=== PATIENT | female | born 1945 | race Caucasian/White ===

== ENCOUNTER 2024-06-23 05:49 | Inpatient (IN) ==
--- NOTE | 2024-05-30 13:43 | PAT Medication Instructions ---
Medication Instructions Date of Service May 30, 2024 Home Medications albuterol sulfate 90 mcg/actuation aerosol inhaler 1 inh inhalation QID PRN sob baclofen 10 mg tablet 10 mg PO TID PRN Pain duloxetine 60 mg capsule,delayed release (Cymbalta) 120 mg PO QAM ergocalciferol (vitamin D2) 1,250 mcg (50,000 unit) capsule (Vitamin D2) 1,250 mcg PO WK ferrous sulfate 325 mg (65 mg iron) tablet 325 mg PO QAM folic acid 1 mg tablet 1 mg PO QAM gabapentin 100 mg capsule 200 mg PO BID gabapentin 900 mg tablet,extended release 24 hr 900 mg PO HS lisinopril 20 mg tablet 20 mg PO QAM methotrexate sodium 2.5 mg tablet 2.5 mg PO UD DO NOT take the morning of surgery ergocalciferol (vitamin D2) 1,250 mcg (50,000 unit) capsule (Vitamin D2) 1,250 mcg PO WK ferrous sulfate 325 mg (65 mg iron) tablet 325 mg PO QAM folic acid 1 mg tablet 1 mg PO QAM lisinopril 20 mg tablet 20 mg PO QAM Take morning of surgery With a small sip of water, OTHERWISE NOTHING TO EAT OR DRINK AFTER MIDNIGHT: albuterol sulfate 90 mcg/actuation aerosol inhaler 1 inh inhalation QID PRN sob (use if needed; please bring rescue inhaler with you to hospital day of surgery if possible) baclofen 10 mg tablet 10 mg PO TID PRN Pain (if needed) duloxetine 60 mg capsule,delayed release (Cymbalta) 120 mg PO QAM gabapentin 100 mg capsule 200 mg PO BID Take evening before surgery albuterol sulfate 90 mcg/actuation aerosol inhaler 1 inh inhalation QID PRN sob (if needed) baclofen 10 mg tablet 10 mg PO TID PRN Pain (if needed) gabapentin 100 mg capsule 200 mg PO BID gabapentin 900 mg tablet,extended release 24 hr 900 mg PO HS STOP 7 days prior to surgery methotrexate sodium 2.5 mg tablet 2.5 mg PO UD Other Notes If you have any questions please call us at [phone] or [phone] or [phone] or [phone]
--- NOTE | 2024-06-02 09:04 | Anesthesiology Consultation ---
Date of Service June 02, 2024 Assessment & Plan (1) Encounter for pre-operative examination: - awaiting surgeon ordered medical clearance, Dr. Michaels 06/09/24. - spinal cord stimulator. Patient aware to bring remote to hospital DOS. Chart Review Chart Review: Pending: Refer to Additional Notes / Consult section and Patient seen in Pre Admission Testing Teaching & Discussion Pre-Anesthesia Teaching/Discussion Notes: Instructed NPO after midnight before surgery, except medications with 15 cc of water. Medication instructions provided according to the PAT guidelines. History Surgery Operation Date: 06/23/24 11:05 Proposed Procedures p L3-L4 Decompression and Fusion, L4-L5 Hardware Removal - Ace Owens, Height/Weight Height: 5 ft 3 in Weight: 88.7 kg Allergies Allergy/AdvReac Type Severity Reaction Status Date / Time erythromycin base Allergy Mild Rash Verified 05/30/24 09:57 latex Allergy Mild Rash Verified 05/30/24 09:57 Penicillins Allergy Mild Rash Verified 05/30/24 09:57 tetracycline Allergy Mild Rash Verified 05/30/24 09:57 codeine AdvReac Mild "makes me Verified 05/30/24 09:57 hyper" Medications Home Medications Medication Instructions Recorded Confirmed Last Taken albuterol sulfate 90 mcg/actuation 1 inh inhalation QID PRN sob 05/30/24 05/30/24 Unknown aerosol inhaler baclofen 10 mg tablet 10 mg PO TID PRN Pain 05/30/24 05/30/24 Unknown duloxetine 60 mg capsule,delayed 120 mg PO QAM 05/30/24 05/30/24 Unknown release (Cymbalta) ergocalciferol (vitamin D2) 1,250 1,250 mcg PO WK 05/30/24 05/30/24 Unknown mcg (50,000 unit) capsule (Vitamin D2) ferrous sulfate 325 mg (65 mg 325 mg PO QAM 05/30/24 05/30/24 Unknown iron) tablet folic acid 1 mg tablet 1 mg PO QAM 05/30/24 05/30/24 Unknown gabapentin 100 mg capsule 200 mg PO BID 05/30/24 05/30/24 Unknown gabapentin 900 mg tablet,extended 900 mg PO HS 05/30/24 05/30/24 Unknown release 24 hr lisinopril 20 mg tablet 20 mg PO QAM 05/30/24 05/30/24 Unknown methotrexate sodium 2.5 mg tablet 2.5 mg PO UD 05/30/24 05/30/24 Unknown Past Medical History Medical History (Updated 06/02/24 @ 09:14 by Ashly Newsome PA-C) Anxiety and depression Asthma controlled per pt; inhaler prn-last used several weeks ago Degenerative disc disease History of blood transfusion marcelino-operatively with previous back surgery Hypertension controlled, stable per pt Low iron Macular degeneration Rheumatoid arthritis Spinal stenosis Patient denies h/o stroke, seizures, heart attack, heart failure, DM, or blood clots/DVTs. Exercise / Class Metabolic Activity III < 4 Walking/Shop/Light housework (denies chest discomfort or shortness of breath with usual activities, infrequently walks up one flight of stairs and has shortness of breath-notes correlation to reduced physical activity due to back- denies change or worsening) Past Family History Family History Other No family history of adverse response to anesthesia Past Surgical History Surgical History (Updated 06/02/24 @ 09:55 by Ashly Newsome PA-C) H/O Achilles tendon repair left H/O non-cataract eye surgery "for macular degeneration" H/O total hysterectomy History of anesthesia reaction trouble waking up and stopped breathing with gallbladder surgery>[facility] 15-16 years ago-patient states cause was not determined-notes has had multiple surgeries including with intubation and has not had any issues History of cataract surgery right/left History of cholecystectomy History of colonoscopy History of lumbar surgery total of 4 (last fusion 2005) ? fusion levels *Dr. Owens has done all surgeries History of tonsillectomy and adenoidectomy History of tooth extraction History of total knee replacement right/left S/P insertion of spinal cord stimulator (2022) will bring remote to PAT and surgery Past Anesthesia History See above regarding personal history. Adopted-no known family history. History of PONV No Hx of PONV and Hx of Motion Sickness Social History Smoking Status: Never smoker Do You Dip or Chew Tobacco: No Hx Alcohol Use: No Hx Substance Use: No Review of Systems Occasional snoring, denies witnessed apneas. Patient denies chest pain, reflux, fever, chills, cough, wheezing, or palpitations. Physical Exam Vital Signs Vitals BP 109/73 (Patient states this is within her typical BP range) P 85 TEMP 97.6 SP02 98% on RA RESP 18 Physical Patient resting comfortably in chair in no acute distress, alert and oriented, responding appropriately throughout visit Full cervical extension range of motion without pain TMD 3.5 finger breadths Mallampati Score 2 Dentition: edentulous, full upper and lower dentures Lungs: normal respiratory effort. Good air movement, clear throughout to auscultation, no adventitious breath sounds Cardiac: regular rate and rhythm, no murmurs noted Carotid arteries: negative bruit bilat Lab Results Anesthesia Preop Results Results Anesthesia Widget: WBC 5.71 K/ul (4.8-10.8) 06/02/24 Hgb 13.2 g/dl (12.0-16.0) 06/02/24 Hct 39.4 % (37.0-47.0) 06/02/24 Plt 297 K/uL (130-400) 06/02/24 Na 140 mmol/L (136-145) 06/02/24 K 3.5 mmol/L (3.5-5.1) 06/02/24 Cl 107 mmol/L (98-107) 06/02/24 CO2 26 mmol/L (21-32) 06/02/24 BUN 20 mg/dl (6-23) 06/02/24 Creat 0.79 mg/dl (0.6-1.2) 06/02/24 Glucose Level 98 mg/dl (70-99(Fasting)) 06/02/24 PT 10.2 Seconds (9.0-12.0) 06/02/24 PTT 27 Seconds (21-31) 06/02/24 INR 0.9 (0.9-1.1) 06/02/24 Urine Color Yellow 06/02/24 Urine Appearance Clear (Clear) 06/02/24 Urine pH 5.0 (4.5-7.5) 06/02/24 Urine Specific [place] 1.027 (1.000-1.030) 06/02/24 Urine Protein Negative (Negative) 06/02/24 Urine Glucose (UA) Negative (Negative) 06/02/24 Urine Ketones Trace (Negative) H 06/02/24 Urine Blood Negative (Negative) 06/02/24 Urine Nitrite Negative (Negative) 06/02/24 Urine Bilirubin Negative (Negative) 06/02/24 Urine Urobilinogen Negative (Negative) 06/02/24 Urine Leukocyte Esterase 1+ (Negative) H 06/02/24 Urine WBC (Auto) 0-5 /hpf (0-5) 06/02/24 Urine RBC (Auto) 0-2 /hpf (0-2) 06/02/24 Urine Hyaline Casts (Auto) 0-2 /lpf (0-2) 06/02/24 Urine Epithelial Cells (Auto) 3-5 /hpf (0-2) H 06/02/24 Urine Bacteria (Auto) None Seen (None Seen) 06/02/24 Blood Type O Positive 06/02/24 Antibody Screen NEGATIVE 06/02/24 Testing Electrocardiogram Date: 06/02/24 NSR, rate 87 bpm Chest X-Ray Date: 06/02/24 No evidence of acute cardiopulmonary disease, communicable disease or tuberculosis. Cervical Spine Date: 06/02/24 Moderate degenerative change without acute osseous abnormality of the cervical spine. No dynamic instability.
[2024-06-23] MEDS: VANCOMYCIN HCL 1,250 MG in SODIUM CHLORIDE 0.9% 250 ML IV SCH (06:22)
[2024-06-23] MEDS: LR 15ML/HR IV SCH (06:22)
[2024-06-23] MEDS: CeleBREX 200 MG CAP PO SCH (06:32)
[2024-06-23] MEDS: GABAPENTIN 300 MG CAP PO SCH ×2 (06:32→21:23)
[2024-06-23] MEDS: ACETAMINOPHEN 500 MG TAB PO SCH (06:32)
[2024-06-23] MEDS: LR 60ML/HR IV SCH (07:11)
--- NOTE | 2024-06-23 07:36 | History & Physical Bridge Note ---
Date of Service June 23, 2024 History & Physical Bridge Note I have examined the patient, reviewed the History & Physical and in the interval since the performance of the History & Physical I have noted the following changes of clinical significance: no changes noted
--- NOTE | 2024-06-23 07:39 | History & Physical Report ---
Date of Service June 23, 2024 Assessment & Plan (1) Spinal stenosis of lumbar region with radiculopathy: Plan: L3-L4 decompression and fusion, L4-L5 hardware removal History of Present Illness Chief Complaint: Back and bilateral leg pain Primary Care Provider: Archie Michaels This is a 70-year-old female who presents with back and pelvic pain and failing course of nonoperative care she is here for surgical invention. Allergies Allergy/AdvReac Type Severity Reaction Status Date / Time erythromycin base Allergy Mild Rash Verified 06/23/24 06:55 latex Allergy Mild Rash Verified 06/23/24 06:55 Penicillins Allergy Mild Rash Verified 06/23/24 06:55 tetracycline Allergy Mild Rash Verified 06/23/24 06:55 codeine AdvReac Mild "makes me Verified 06/23/24 06:55 hyper" Home Medications Medication Instructions Recorded Confirmed Type albuterol sulfate 90 mcg/actuation 1 inh inhalation QID PRN sob 05/30/24 06/23/24 History aerosol inhaler baclofen 10 mg tablet 10 mg PO TID PRN Pain 05/30/24 06/23/24 History duloxetine 60 mg capsule,delayed 120 mg PO QAM 05/30/24 06/23/24 History release (Cymbalta) ergocalciferol (vitamin D2) 1,250 1,250 mcg PO WK 05/30/24 06/23/24 History mcg (50,000 unit) capsule (Vitamin D2) ferrous sulfate 325 mg (65 mg 325 mg PO QAM 05/30/24 06/23/24 History iron) tablet folic acid 1 mg tablet 1 mg PO QAM 05/30/24 06/23/24 History gabapentin 100 mg capsule 200 mg PO BID 05/30/24 06/23/24 History gabapentin 900 mg tablet,extended 900 mg PO HS 05/30/24 06/23/24 History release 24 hr lisinopril 20 mg tablet 20 mg PO QAM 05/30/24 06/23/24 History methotrexate sodium 2.5 mg tablet 2.5 mg PO UD 05/30/24 06/23/24 History Past Med/Surg History Problem List (Updated 06/23/24 @ 07:38 by Ace Owens, DO) Spinal stenosis of lumbar region with radiculopathy Encounter for pre-operative examination Medical History (Updated 06/23/24 @ 07:38 by Ace Owens, DO) History of blood transfusion marcelino-operatively with previous back surgery Degenerative disc disease Spinal stenosis Rheumatoid arthritis Low iron Macular degeneration Anxiety and depression Hypertension controlled, stable per pt Asthma controlled per pt; inhaler prn-last used several weeks ago Surgical History H/O Achilles tendon repair left History of anesthesia reaction trouble waking up and stopped breathing with gallbladder surgery>[facility] 15-16 years ago-patient states cause was not determined-notes has had multiple surgeries including with intubation and has not had any issues History of total knee replacement right/left S/P insertion of spinal cord stimulator (2022) will bring remote to [facility] and surgery History of lumbar surgery total of 4 (last fusion 2005) ? fusion levels *Dr. Owens has done all surgeries History of colonoscopy H/O total hysterectomy History of cholecystectomy H/O non-cataract eye surgery "for macular degeneration" History of tooth extraction History of tonsillectomy and adenoidectomy History of cataract surgery right/left Family History Other No family history of adverse response to anesthesia Social History Smoking Status: Unknown if ever smoked Second Hand Exposure: Yes (in the past); Do You Dip or Chew Tobacco: No; Hx Alcohol Use: No Hx Substance Use: No Preferred Language: [place] Communication Ability: Effective Financial Operations Consultant Required: No Beliefs That Will Affect Care: None Current Living Situation: Spouse Current Living Situation Comment: currently living at daughter's d/t 's heart surgery (for recovery) Feels Safe at Home: Yes Safety Concerns: Feels Safe At This Time Assistive Devices: Denture - Upper, Denture - Lower and Glasses Physical Exam Physical Exam: Patient is alert and oriented Heart regular rhythm lungs clear Results & Data Results & Data Vital Signs (Past 12 Hours) Vital Signs Temp Pulse Resp BP Pulse Ox O2 Del Method 06/23/24 06:35 36.8 C 85 18 102/59 L 96 Room Air
[2024-06-23] MEDS ORDERED: ROCURONIUM BROMIDE 10 MG/ML 5 ML VIAL IV ONE (08:28)
[2024-06-23] MEDS ORDERED: DEXAMETHASONE SOD INJ 4 MG/ML VIAL ONE (08:28)
[2024-06-23] MEDS ORDERED: PROPOFOL IV EMULSION 10 MG/ML 20 ML VIAL IV ONE (08:28)
[2024-06-23] MEDS ORDERED: ONDANSETRON INJ 2 MG/ML 2 ML VIAL ONE (08:28)
[2024-06-23] MEDS ORDERED: fentaNYL citrate PF 100 MCG/2 ML VIAL ONE (08:29)
[2024-06-23] MEDS ORDERED: MIDAZOLAM HCL 1 MG/ML 2ML VIAL ONE (08:29)
[2024-06-23] MEDS ORDERED: SUGAMMADEX SODIUM 200 MG/2 ML VIAL IV ONE ×2 (08:30→11:36)
[2024-06-23] MEDS ORDERED: ePHEDrine sulfate 50 MG/ML AMP IV PRN (09:26)
[2024-06-23] MEDS ORDERED: ATROPINE SULFATE 0.1 MG/ML 10ML SYR IV PRN (09:26)
[2024-06-23] MEDS ORDERED: DROPERIDOL 5 MG/2 ML VIAL IV PRN (09:26)
[2024-06-23] MEDS: BUPIVACAINE/EPINEPHRINE 0.25% 1:200,000 30 ML VIAL ONE (10:16)
[2024-06-23] MEDS: FLOSEAL HEMOSTATIC MATRIX 10ML TOP ONE (11:31)
[2024-06-23] MEDS: ceFAZolin 330 MG/ML 1 GM VIAL ONE (11:33)
--- NOTE | 2024-06-23 11:41 | Fluoroscopy Report ---
FL lumbar spine 2-3V CLINICAL HISTORY: L3-L4 DECOMPRESSION AND FUSION L4-L5 HW REMOVAL COMPARISON STUDY: None FLUOROSCOPY TIME: 18 seconds FLUOROSCOPY IMAGES: 3 EXPOSURE DOSE: 13 mGy FINDINGS: Fluoroscopy was provided for lumbar metallic fusion. IMPRESSION: Intraoperative fluoroscopy. ACT 112: Negative or not required by law. Electronically signed by: Jax Dean M.D. 06/23/2024 11:40 AM
--- NOTE | 2024-06-23 11:43 | Operative Report ---
Post Operative Report Pre & Post Diagnosis Operation Date: 06/23/24 07:45 Pre-Op Diagnosis: #1 multilevel lumbar spondylosis with radiculopathy. #2 lumbar spinal stenosis. #3 failed spinal cord stimulator. Post-Op Diagnosis: Same I identified the patient and participated in the time-out.: Yes Procedure Operation Date: 06/23/24 07:45 Actual Procedures #1 removal of posterior instrumentation L4-5. #2 exploration of fusion L4-L5. #3 removal of spinal cord stimulator leads and battery. #4 lumbar decompression bilateral medial facetectomies and foraminotomies L1-L2, L2-L3 and L3-L4. #5 posterior spinal fusion L2-L4. #6 placement posterior instrumentation L2-L5. #7 interbody fusion L2-L3 L3-L4. #8 patient with Spira 11 x 26 mm at L2-L3 and 9 x 26 mm of L3-L4. #9 placement locally harvested morselized autograft posterior gutters. #10 placement fuse collagen sponge, with Koros in the posterior lateral gutters and os design bone graft interbody space. #11 application of versa wrap of the exposed dura. Surgeon Ace Owens, DO Structural Welder Xiomy Reina Estimated Blood Loss 450 Findings See Below The patient is 5 foot 3 weighing over 90 kg with a BMI in excess of 35. Patient unable to contribute to significant technical difficulty with positioning exposure and the procedure itself and at least 50% increased operative time. Specimens None Indications This is a 78-year-old female well-known to me the presents with the above- mentioned diagnosis. Failing course of nonoperative care she is here for surgical intervention. Preoperatively did discuss the malfunction of her spinal cord stimulator and its proximity to our surgical dissection subsequently elected to remove the device. Description of Procedure Patient was met with identified informed consent obtained. Patient was then taken to the operative suite underwent ablation placed in a prone position on the Jas table atop the Antonio frame. All bony prominences well-padded eyes inspected to ensure no external pressure placed upon them. This point the lumbar spine was prepped and draped in normal sterile fashion. Sharp dissection with the assistance of Bovie cautery performed down to and exposing the lamina transverse processes of L2-L3 and there is instrumentation L4-L5 bilaterally. The leads for the spinal cord stimulator were directly in the path of our dissection or compromised during the exposure. Subsequently leads were removed without difficulty. This included removal of the battery. The hardware at L4- 5 was then removed bilaterally. The fusion mass was explored noted to be mature and intact. Informed complete laminectomy of L3 with bilateral medial facetectomies and foraminotomies addressing severe spinal stenosis. Performed a laminectomy of L 2 addressing severe subarticular stenosis compromising the stability of this region. I performed a partial laminectomy of L1 with bilateral medial facetectomies addressing severe subarticular stenosis. Pedicle screws were subsequently placed at L2 L3-L4-L5 bilaterally with assistance of fluoroscopy process luther contoured and placed. by way of transforaminal approach and right a complete discectomy of L3-L4 was performed endplates guarded to subcortical mean bone and a 9 x 26 mm Spira cage filled with os designed tapped in position. Then proceeded to L2-L3 and again by way of transforaminal approach on the right complete discectomy performed endplates guarded to subcortical bleeding bone and 11 x 26 mm Spira cage filled with os designed tapped in position. The rods were then locked in final position bilaterally. The transverse processes of L2-L3 and L4 burred to subcortical bleeding bone. Infuse collagen sponge, with Koros and local autograft placed in posterior gutters. 15 round AMI inserted. Versa wrap placed over the exposed dura. The incision was then closed with 1 Vicryl fascia 2-0 Vicryl subcutaneously and 4 Monocryl for final skin closure. Steri-Strips sterile dressing placed. Patient waken taken to PACU stable condition. Please note spinal cord monitoring was utilized at the procedure no changes noted. Xiomy Reina was present at the entire surgery while the patient positioning complex portion of the surgery and final skin closure. I attest to the content of the Intraoperative Record and any orders documented therein. Any exceptions are noted below.
[2024-06-23] MEDS: fentaNYL citrate PF 100 MCG/2 ML VIAL IV PRN (12:16)
--- NOTE | 2024-06-23 12:46 | Anesthesiology Progress Note ---
Date of Service June 23, 2024 Anesthesia Post Procedure Vital Signs Vital Signs: Temp Pulse Pulse Resp BP Pulse Ox O2 Del Method 06/23/24 12:35 36.6 C 93 H 12 106/55 L 98 Nasal Cannula 06/23/24 12:25 89 15 108/55 L 95 Nasal Cannula 06/23/24 12:15 87 17 124/63 99 Oxymask 06/23/24 12:05 93 H 17 159/72 H 99 Oxymask 06/23/24 11:59 36 C L 95 H 14 126/61 93 Oxymask 06/23/24 06:35 36.8 C 85 18 102/59 L 96 Room Air O2 Flow Rate 06/23/24 12:35 2 06/23/24 12:25 2 06/23/24 12:15 4 06/23/24 12:05 9 06/23/24 11:59 9 06/23/24 06:35 Pain Intensity Lower Back: Pain Intensity: 7 Back: Pain Intensity: 8 Transfer of Care Handoff Completed per policy Notes Mental Status: alert / awake / arousable Patient Amnestic to Procedure: Yes Nausea / Vomiting: adequately controlled Pain: adequately controlled Airway Patency, RR, SpO2: stable & adequate BP & HR: stable & adequate Hydration State: stable & adequate Anesthetic Complications: no major complications apparent and Pt Satisfied with anesthetic care
[2024-06-23] MEDS ORDERED: bisacodyL 10 MG SUPP PR PRN (13:03)
[2024-06-23] MEDS ORDERED: hydrOXYzine HCl 25 MG TAB PO PRN (13:03)
[2024-06-23] MEDS ORDERED: SOD PHOSPHATE/SOD BIPHOSPHATE ENEMA 132 ML BTL PR PRN (13:03)
[2024-06-23] MEDS ORDERED: FAMOTIDINE 20 MG TAB PO PRN (13:03)
[2024-06-23] MEDS ORDERED: METOCLOPRAMIDE HCL INJ 5 MG/ML 2 ML VIAL IV PRN (13:03)
[2024-06-23] MEDS ORDERED: ALBUTEROL HFA 8 GM INHALER INH PRN (13:03)
[2024-06-23] MEDS ORDERED: LORazepam 2 MG/1 ML VIAL IV PRN (13:03)
[2024-06-23] MEDS ORDERED: LORazepam 0.5 MG TAB PO PRN (13:03)
[2024-06-23] MEDS ORDERED: ONDANSETRON 4 MG OD TAB PO PRN (13:03)
[2024-06-23] MEDS ORDERED: DO NOT ADMINISTER PNEUMOCOCCAL VACCINE PRN (13:03)
[2024-06-23] MEDS ORDERED: DO NOT ADMINISTER FLU VACCINE PRN (13:03)
[2024-06-23] MEDS ORDERED: ALUMINUM/MAGNESIUM SUSP 30 ML UDC PO PRN (13:03)
[2024-06-23] MEDS ORDERED: NALOXONE HCL 0.4 MG/1 ML VIAL/CARP IV PRN (13:03)
[2024-06-23] MEDS ORDERED: MAGNESIUM HYDROXIDE SUSP 30 ML UDC PO PRN (13:03)
[2024-06-23] MEDS ORDERED: PROMETHAZINE 12.5 MG/50.5 ML BAG IV PRN (13:03)
[2024-06-23] MEDS: HYDROmorphone INJ 1 MG/ML SYRINGE IV PRN (13:12)
[2024-06-23] MEDS: HYDROmorphone INJ 1 MG/ML SYRINGE ONE (14:01)
[2024-06-23] MEDS: HYDROmorphone INJ 0.5 MG/0.5 ML SYR IV PRN (14:15)
[2024-06-23] MEDS: ACETAMINOPHEN 1,000 MG/100 ML VIAL IV PRN (14:15)
--- NOTE | 2024-06-23 14:40 | Hospitalist Consultation ---
Date of Consultation June 23, 2024 Assessment & Plan (1) Spinal stenosis of lumbar region with radiculopathy: This is a 78 y/o female with seronegative RA, HTN, CKD3, dyslipidemia, asthma, B12 deficiency, and other history as outlined below who underwent L3-L4 decompression and fusion, spinal cord stimulator removal, and L4-L5 hardware removal today by Dr. Owens and for whom we have been consulted to assist with post-operative medical management. Pt's BPs have been borderline low since arriving to the floor from PACU, likely related to multiple doses of narcotics post-operatively. - Discussed with nursing - trying to limit narcotics as possible until BP improves while still keeping pain manageable. - Increase IVF rate to 125 ml/hr for total of 3 liters - if BP <90, consider fluid bolus - Stat labs this afternoon - CBC, BMP. Repeat in the AM. EBL was 450 ml - Encourage incentive spirometry (2) Rheumatoid arthritis: Chronic, stable Methotrexate held for surgery (3) Asthma: Chronic, stable. No increased symptoms at present Continue home inhalers (4) Anxiety and depression: Chronic, stable Continue outpatient meds. (5) Hypertension: Chronic, stable Resume home lisinopril once BP improving but will hold for now. Reassess in the morning. Plan Pt seen and reviewed with collaborating physician, Dr. Steven. Plan of care discussed and as outlined above. Thank you for this consultation. We will continue to follow the patient with you. A member of the [facility] Hospitalist Team is available 11/12 via [employer]. Please don't hesitate to reach out with questions. Kyle Escalante PA-C Supervising Physician Co-Signing Physician Notes Attending addendum: The patient was seen and examined in medical floor in presence of the family members She is a status post L3-L4 decompression and fusion Remains drowsy from anesthetics and pain medication but denies any significant symptoms on waking up On examination Lying in bed without any acute distress Hemodynamically stable with blood pressure on the lower side at 92/58 and has been requiring 2 L to maintain saturation Chestclear to auscultate bilaterally HeartS1-S2, regular Abdomenbenign Extremitiesno edema CNSalert and awake with drowsiness secondary to medications anesthetics. Moves all extremities without any focal deficit Her admission labs and imaging studies reviewed Borderline hypotension following surgery of lumbar spine Complicated by use of pain medications and anesthetics Will give adequate intravenous fluid and monitor vitals Will check labs Otherwise medically stable and will keep following Agree with assessment and plan as outlined above by Yasemin Escalante PA-C and take the full responsibility of care in the hospital Dr Sylvia Steven History of Present Illness Reason for Consultation: Post-operative medical management Requesting Physician: Dr. Ace Owens Attending Physician: Ace Owens, History of Present Illness This is a 78 y/o female with seronegative RA, HTN, CKD3, dyslipidemia, asthma, B12 deficiency, and other history as outlined below who underwent L3-L4 decompression and fusion, spinal cord stimulator removal, and L4-L5 hardware removal today by Dr. Owens and for whom we have been consulted to assist with post-operative medical management. Currently, pt's main complaint is lower back and anterior thigh pain. The thigh pain is new post-operatively. When she initially arrived to the floor from PACU, her BPs were in the 80s systolic and she was reportedly feeling lightheaded. However, her BPs have been improving since arrival to the floor with current systolic in the 90s. Nursing is trying to limit narcotics and use alternate methods to control her pain. Additionally, pt received 1100 cc of LR before arriving to the floor and has fluids running at 60 cc/hr. At present, pt denies chest pain, shortness of breath, lightheade dness, N/V, numbness or tingling. She is on lisinopril for hypertension but did not take this morning. Allergies Allergy/AdvReac Type Severity Reaction Status Date / Time erythromycin base Allergy Mild Rash Verified 06/23/24 06:55 latex Allergy Mild Rash Verified 06/23/24 06:55 Penicillins Allergy Mild Rash Verified 06/23/24 06:55 tetracycline Allergy Mild Rash Verified 06/23/24 06:55 codeine AdvReac Mild "makes me Verified 06/23/24 06:55 hyper" Home Medications Medication Instructions Recorded Confirmed Type albuterol sulfate 90 mcg/actuation 1 inh inhalation QID PRN sob 05/30/24 06/23/24 History aerosol inhaler baclofen 10 mg tablet 10 mg PO TID PRN Pain 05/30/24 06/23/24 History duloxetine 60 mg capsule,delayed 120 mg PO QAM 05/30/24 06/23/24 History release (Cymbalta) ergocalciferol (vitamin D2) 1,250 1,250 mcg PO WK 05/30/24 06/23/24 History mcg (50,000 unit) capsule (Vitamin D2) ferrous sulfate 325 mg (65 mg 325 mg PO QAM 05/30/24 06/23/24 History iron) tablet folic acid 1 mg tablet 1 mg PO QAM 05/30/24 06/23/24 History gabapentin 100 mg capsule 200 mg PO BID 05/30/24 06/23/24 History lisinopril 20 mg tablet 20 mg PO QAM 05/30/24 06/23/24 History methotrexate sodium 2.5 mg tablet 2.5 mg PO UD 05/30/24 06/23/24 History gabapentin 300 mg capsule 900 mg PO HS 06/23/24 06/23/24 History oxycodone 5 mg tablet 5 mg PO Q6H PRN pain #30 tabs 06/23/24 Rx tramadol 50 mg tablet 50 mg PO Q6H PRN pain, moderate 06/23/24 Rx #30 tabs Patient History Medical History (Updated 06/23/24 @ 16:50 by Tata Escalante PA-C) History of blood transfusion marcelino-operatively with previous back surgery Degenerative disc disease Spinal stenosis Rheumatoid arthritis Low iron Macular degeneration Anxiety and depression Hypertension controlled, stable per pt Asthma controlled per pt; inhaler prn-last used several weeks ago Surgical History H/O Achilles tendon repair left History of anesthesia reaction trouble waking up and stopped breathing with gallbladder surgery>[facility] 15-16 years ago-patient states cause was not determined-notes has had multiple surgeries including with intubation and has not had any issues History of total knee replacement right/left S/P insertion of spinal cord stimulator (2022) will bring remote to PAT and surgery History of lumbar surgery total of 4 (last fusion 2005) ? fusion levels *Dr. Owens has done all surgeries History of colonoscopy H/O total hysterectomy History of cholecystectomy H/O non-cataract eye surgery "for macular degeneration" History of tooth extraction History of tonsillectomy and adenoidectomy History of cataract surgery right/left Family History Other No family history of adverse response to anesthesia Social History Smoking Status: Unknown if ever smoked Second Hand Exposure: Yes (in the past); Do You Dip or Chew Tobacco: No; Hx Alcohol Use: No Hx Substance Use: No Preferred Language: Sami Communication Ability: Effective Child Support Specialist Required: No Beliefs That Will Affect Care: None Current Living Situation: Spouse Current Living Situation Comment: currently living at daughter's d/t 's heart surgery (for recovery) Feels Safe at Home: Yes Safety Concerns: Feels Safe At This Time Assistive Devices: Denture - Upper, Denture - Lower and Glasses Review of Systems Review of Systems: All systems reviewed & are unremarkable except as noted in Subjective Physical Exam Physical Exam: General: awake, appears uncomfortable but not in distress HEENT: no scleral icterus Neck: supple, trachea midline Heart: RRR Lungs: CTA bilaterally on the anterior Abdomen: soft, +BS, NT Extremities: distal pulses intact and equal, no pedal edema Skin: warm, dry, no jaundice or erythema Neurologic: moving all extremities, no focal deficits AMI drain with serosanguineous drainage Results & Data Results & Data Vital Signs (Past 12 Hours) Vital Signs Temp Pulse Pulse Resp BP Pulse Ox O2 Del Method 06/23/24 13:30 96 H 15 101/58 L 96 Nasal Cannula 06/23/24 13:15 102 H 13 108/84 98 Nasal Cannula 06/23/24 13:00 92 H 15 102/58 L 96 Nasal Cannula 06/23/24 12:45 95 H 16 119/69 98 Nasal Cannula 06/23/24 12:35 36.6 C 93 H 12 106/55 L 98 Nasal Cannula 06/23/24 12:25 89 15 108/55 L 95 Nasal Cannula 06/23/24 12:15 87 17 124/63 99 Oxymask 06/23/24 12:05 93 H 17 159/72 H 99 Oxymask 06/23/24 11:59 36 C L 95 H 14 126/61 93 Oxymask 06/23/24 06:35 36.8 C 85 18 102/59 L 96 Room Air O2 Flow Rate 06/23/24 13:30 2 06/23/24 13:15 2 06/23/24 13:00 2 06/23/24 12:45 2 06/23/24 12:35 2 06/23/24 12:25 2 06/23/24 12:15 4 06/23/24 12:05 9 06/23/24 11:59 9 06/23/24 06:35 Medications Administered Acetaminophen (Acetaminophen 500 Mg Tab) 1,000 mg PO PREOP RAKAN Stop: 06/23/24 18:00 Last Admin: 06/23/24 06:32 Dose: 1,000 mg Documented By: EDU Celecoxib (Celebrex 200 Mg Cap) 200 mg PO PREOP RAKAN Stop: 06/23/24 18:00 Last Admin: 06/23/24 06:32 Dose: 200 mg Documented By: EDU Gabapentin (Gabapentin 300 Mg Cap) 300 mg PO PREOP RAKAN Stop: 06/23/24 18:00 Last Admin: 06/23/24 06:32 Dose: 300 mg Documented By: EDU Gabapentin (Gabapentin 100 Mg Cap) 200 mg PO BID@0900,1400 [facility] Stop: 07/23/24 13:59 Last Admin: 06/23/24 15:15 Dose: 200 mg Documented By: LMM Hydromorphone HCl (Hydromorphone Inj 0.5 Mg/0.5 Ml Syr) 0.5 mg IV Q3H PRN PRN Reason: MODERATE Pain (Scale 4,5,6) & Pre PT Stop: 07/07/24 13:02 Last Admin: 06/23/24 14:15 Dose: 0.5 mg Documented By: LMM Hydromorphone HCl (Hydromorphone Inj 1 Mg/Ml Syringe) 1 mg IV Q3H PRN PRN Reason: SEVERE Pain (Scale 7,8,9,10) Stop: 07/07/24 13:02 Last Admin: 06/23/24 13:12 Dose: 1 mg Documented By: JYOTI Lactated Ringer's (Lr) 1,000 mls @ 15 mls/hr IV .Q24H RAKAN Stop: 06/24/24 05:59 Last Infusion: 06/23/24 09:39 Dose: Infused Documented By: [facility] Admin: 06/23/24 06:22 Dose: 15 mls/hr Documented By: EDU Lactated Ringer's (Lr) 1,000 mls @ 125 mls/hr IV .Q8H [facility] Stop: 06/24/24 10:38 Last Admin: 06/23/24 07:11 Dose: Not Given Documented By: EDU Vancomycin HCl 1,250 mg/ (Sodium Chloride) 275 mls @ 200 mls/hr IV PREOP RAKAN Stop: 06/23/24 18:00 Last Infusion: 06/23/24 13:59 Dose: Infused Documented By: Admin: 06/23/24 06:22 Dose: 200 mls/hr Documented By: EDU Acetaminophen (Ofirmev) 1,000 mg in 100 mls @ 400 mls/hr IV Q8H PRN PRN Reason: Pain Rating 1-3 & Pre PT Stop: 06/24/24 13:04 Last Infusion: 06/23/24 14:35 Dose: Infused Documented By: Admin: 06/23/24 14:15 Dose: 400 mls/hr Documented By: LMM Discontinued Medications Bupivacaine HCl/Epinephrine Bitart (Bupivacaine/Epinephrine 0.25% 1:200,000 30 Ml Vial) Confirm Administered Dose 30 ml .ROUTE .STK-MED ONE Stop: 06/23/24 09:36 Last Admin: 06/23/24 10:16 Dose: 25 ml Documented By: GMB Cefazolin Sodium (Cefazolin 330 Mg/Ml 1 Gm Vial) Confirm Administered Dose 990 mg .ROUTE .STK-MED ONE Stop: 06/23/24 09:36 Last Admin: 06/23/24 11:33 Dose: 990 mg Documented By: GMHaider Fentanyl Citrate (Fentanyl Citrate Pf 100 Mcg/2 Ml Vial) 25 mcg IV Q5M PRN PRN Reason: PACU Use Only-Pain Stop: 06/23/24 17:26 Last Admin: 06/23/24 12:53 Dose: 25 mcg Documented By: Admin: 06/23/24 12:27 Dose: 25 mcg Documented By: Admin: 06/23/24 12:21 Dose: 25 mcg Documented By: Admin: 06/23/24 12:16 Dose: 25 mcg Documented By: KASSI Hydromorphone HCl (Hydromorphone Inj 1 Mg/Ml Syringe) Confirm Administered Dose 1 mg .ROUTE .STK-MED ONE Stop: 06/23/24 13:12 Last Admin: 06/23/24 14:01 Dose: Not Given Documented By: LMM Miscellaneous ( Floseal Hemostatic Matrix 10ml) 0 ml TOP ONCE ONE Stop: 06/23/24 10:35 Last Admin: 06/23/24 11:31 Dose: 20 ml Documented By: GMB (2) Rheumatoid arthritis Rheumatoid arthritis location: unspecified site Rheumatoid factor presence: without rheumatoid factor Qualified Code(s): M06.00 - Rheumatoid arthritis without rheumatoid factor, unspecified site (3) Asthma Asthma complication type: unspecified Asthma persistence: unspecified Asthma severity: unspecified severity Qualified Code(s): J45.909 - Unspecified asthma, uncomplicated (5) Hypertension Hypertension type: unspecified Qualified Code(s): I10 - Essential (primary) hypertension
[2024-06-23] MEDS: GABAPENTIN 100 MG CAP PO SCH (15:15)
[2024-06-23 15:46] LABS: Hematocrit (blood only) 32.8 % (37.0-47.0); Hemoglobin 10.6 g/dl (12.0-16.0); Mean Corpuscular Hemoglobin 31.5 pg (25.0-34.0); Mean Corpuscular Hgb Conc 32.3 g/dL (32.0-36.0); Mean Corpuscular Volume 97.6 fL (80.0-100.0); Mean Platelet Volume 9.2 fL (9.4-12.4); Platelet Count 226 K/uL (130-400); RDW Coefficient of Variation 14.6 % (11.5-14.5); RDW Standard Deviation 51.6 fL (36.4-46.3); Red Blood Count 3.36 M/uL (4.20-5.40); White Blood Count 10.83 K/ul (4.8-10.8)
[2024-06-23 16:05] LABS: Basophils # (auto) 0.03 K/uL (0.00-0.20); Basophils % (auto) 0.3 %; Immature Granulocytes # (auto) 0.15 K/uL (0.01-0.20); Immature Granulocytes % (auto) 1.4 %; Lymphocytes % (auto) 6.5 %; Monocytes # (auto) 0.14 K/uL (0.11-0.59); Monocytes % (auto) 1.3 %; Neutrophils # (auto) 9.81 K/uL (1.40-6.50); Neutrophils % (auto) 90.5 %
[2024-06-23 16:39] LABS: Calcium 7.7 mg/dl (8.6-10.3); Potassium 4.4 mmol/L (3.5-5.1)
[2024-06-23 16:45] LABS: BUN Creatinine Ratio 29.1 (10-20); Creatinine Clr Calc Pharmacy 62.7 ml/min
[2024-06-23] MEDS: oxyCODONE HCL IR 5 MG TAB (IMMEDIATE RELEASE) PO PRN (17:00)
[2024-06-23] MEDS: CLINDAMYCIN/D5W 600 MG/50 ML BAG IV SCH (17:30)
[2024-06-23] MEDS ORDERED: GABAPENTIN 100 MG CAP PO SCH (21:00)
[2024-06-23] MEDS: DOCUSATE SODIUM/SENNA 50/8.6MG TAB PO SCH (21:22)
[2024-06-24] MEDS: POLYETHYLENE (MIRALAX) 17 GM PACK PO SCH (06:16)
[2024-06-24] MEDS: SODIUM CHLORIDE 0.9% 500 ML IV ONE (06:38)
[2024-06-24 08:33] LABS: Basophils # (auto) 0.02 K/uL (0.00-0.20); Basophils % (auto) 0.3 %; Eosinophils # (auto) 0.01 K/uL (0.00-0.50); Eosinophils % (auto) 0.1 %; Hematocrit (blood only) 27.9 % (37.0-47.0); Hemoglobin 9.2 g/dl (12.0-16.0); Immature Granulocytes # (auto) 0.04 K/uL (0.01-0.20); Immature Granulocytes % (auto) 0.5 %; Lymphocytes # (auto) 1.66 K/uL (1.20-3.40); Lymphocytes % (auto) 21.4 %; Mean Corpuscular Hemoglobin 31.9 pg (25.0-34.0); Mean Corpuscular Volume 96.9 fL (80.0-100.0); Mean Platelet Volume 9.4 fL (9.4-12.4); Monocytes # (auto) 0.67 K/uL (0.11-0.59); Monocytes % (auto) 8.6 %; Neutrophils # (auto) 5.36 K/uL (1.40-6.50); Neutrophils % (auto) 69.1 %; Platelet Count 216 K/uL (130-400); RDW Coefficient of Variation 14.4 % (11.5-14.5); RDW Standard Deviation 50.2 fL (36.4-46.3); Red Blood Count 2.88 M/uL (4.20-5.40); White Blood Count 7.76 K/ul (4.8-10.8)
[2024-06-24 08:55] LABS: Calcium 7.8 mg/dl (8.6-10.3); Creatinine Clr Calc Pharmacy 66.9 ml/min; Potassium 4.1 mmol/L (3.5-5.1)
[2024-06-24] MEDS ORDERED: lisinopril 20 MG TAB PO SCH (09:00)
[2024-06-24] MEDS: FERROUS SULFATE 325 MG TAB PO SCH (09:15)
[2024-06-24] MEDS: DULoxetine HCL 60 MG CAP PO SCH (09:15)
[2024-06-24] MEDS: FOLIC ACID 1 MG TAB PO SCH (09:15)
[2024-06-24] MEDS: dexAMETHasone 6 MG in SYRINGE 0 ML IV SCH (09:16)
[2024-06-24] MEDS: ONDANSETRON INJ 2 MG/ML 2 ML VIAL IV PRN (09:49)
--- NOTE | 2024-06-24 10:17 | Orthopedic Progress Note ---
Date of Service June 24, 2024 Assessment & Plan (1) Spinal stenosis of lumbar region with radiculopathy: Plan: At this time we will hopefully begin transfers to a chair and ideally will physical therapy. Will maintain Lira today. Admission and Anticipated Discharge Date Admission Date: June 23, 2024 Subjective Patient struggling with significant back pain. Denies any leg pain. Physical Exam Physical Exam: On exam she is able to sit up in bed. She is good strength testing lower extremities. Results & Data Vital Signs (Past 12 Hours) Vital Signs Temp Pulse Resp BP BP Pulse Ox O2 Del Method 06/24/24 09:45 110/70 06/24/24 07:20 Nasal Cannula 06/24/24 07:20 36.8 C 91 H 18 88/50 L 92 Nasal Cannula 06/24/24 06:13 36.2 C L 92 H 16 90/55 L 98 Nasal Cannula 06/24/24 03:27 36.7 C 96 H 18 91/55 L 97 Nasal Cannula 06/23/24 22:56 36.6 C 98 H 18 92/58 L 95 Nasal Cannula O2 Flow Rate 06/24/24 09:45 06/24/24 07:20 2 06/24/24 07:20 2 06/24/24 06:13 2 06/24/24 03:27 2 06/23/24 22:56 2 Queries Orthopedic Spine Acute Posthemorrhagic Anemia: Yes Obesity: Yes
[2024-06-24] MEDS ORDERED: PLASMA-LYTE A 1,000 ML IV SCH (10:30)
[2024-06-24] MEDS: LACTATED RINGER'S 1,000 ML IV SCH (10:46)
--- NOTE | 2024-06-24 15:11 | Hospitalist Progress Note ---
Date of Service June 24, 2024 Assessment & Plan (1) Spinal stenosis of lumbar region with radiculopathy: Plan: This is a 78 y/o female with seronegative RA, HTN, CKD3, dyslipidemia, asthma, B12 deficiency, and other history as outlined below who underwent L3-L4 decompression and fusion, spinal cord stimulator removal, and L4-L5 hardware removal on 06/23/[address] Owens . Patient has been consulted for comanagement. Spinal stenosis status post L3-L4 decompression and fusion on 06/23/2024 Acute blood loss anemia Continue on IV fluids for low blood pressure; LR at 125 cc for 1500 mL Admit IV narcotics as possible until blood pressure improves PT OT eval Pain control Incentive spirometry (2) Rheumatoid arthritis: Plan: Chronic, stable Methotrexate held for surgery (3) Asthma: Plan: Chronic, stable. No increased symptoms at present Continue home inhalers (4) Anxiety and depression: Plan: Chronic, stable Continue outpatient meds. (5) Hypertension: Plan: Chronic, stable Resume home lisinopril once BP improving but will hold for now. Reassess in the morning. Plan Full code DVT prophylaxis as per primary Please note the above document was generated using voice recognition software. It may contain grammatical, syntax or spelling errors. Any formal questions or concerns about the content, text or information contained within the body of this dictation should be directly addressed to the provider for clarification Admission and Anticipated Discharge Date Admission Date: June 23, 2024 Subjective Patient seen and examined at bedside. Patient was hypotensive in the morning requiring IV fluid boluses. She reported dizziness while standing up Review of Systems Review of Systems: All systems reviewed & are unremarkable except as noted in Subjective Physical Exam Physical Exam: General: awake, comfortable;not in any distress HEENT: no scleral icterus Neck: supple, trachea midline Heart: RRR Lungs: CTA bilaterally on the anterior Abdomen: soft, +BS, NT Extremities: distal pulses intact and equal, no pedal edema Skin: warm, dry, no jaundice or erythema Neurologic: moving all extremities, no focal deficits AMI drain with serosanguineous drainage Results & Data Results & Data Vital Signs (Past 12 Hours) Vital Signs Temp Pulse Resp BP BP Pulse Ox O2 Del Method 06/24/24 13:48 36.9 C 105 H 18 107/68 91 Room Air 06/24/24 09:45 110/70 06/24/24 07:20 Nasal Cannula 06/24/24 07:20 36.8 C 91 H 18 88/50 L 92 Nasal Cannula 06/24/24 06:13 36.2 C L 92 H 16 90/55 L 98 Nasal Cannula 06/24/24 03:27 36.7 C 96 H 18 91/55 L 97 Nasal Cannula O2 Flow Rate 06/24/24 13:48 06/24/24 09:45 06/24/24 07:20 2 06/24/24 07:20 2 06/24/24 06:13 2 06/24/24 03:27 2 (2) Rheumatoid arthritis Rheumatoid arthritis location: unspecified site Rheumatoid factor presence: without rheumatoid factor Qualified Code(s): M06.00 - Rheumatoid arthritis without rheumatoid factor, unspecified site (3) Asthma Asthma severity: unspecified severity Asthma persistence: unspecified Asthma complication type: unspecified Qualified Code(s): J45.909 - Unspecified asthma, uncomplicated (5) Hypertension Hypertension type: unspecified Qualified Code(s): I10 - Essential (primary) hypertension
[2024-06-25] MEDS: diphenhydrAMINE Capsule 25 MG CAP PO PRN (00:39)
[2024-06-25] MEDS: SODIUM CHLORIDE 0.9% 500 ML IV ONE (05:57)
[2024-06-25 07:36] LABS: Basophils # (auto) 0.03 K/uL (0.00-0.20); Basophils % (auto) 0.3 %; Eosinophils # (auto) 0.03 K/uL (0.00-0.50); Eosinophils % (auto) 0.3 %; Hematocrit (blood only) 27.5 % (37.0-47.0); Hemoglobin 9.2 g/dl (12.0-16.0); Immature Granulocytes # (auto) 0.07 K/uL (0.01-0.20); Immature Granulocytes % (auto) 0.7 %; Lymphocytes # (auto) 2.42 K/uL (1.20-3.40); Lymphocytes % (auto) 25.9 %; Mean Corpuscular Hemoglobin 32.2 pg (25.0-34.0); Mean Corpuscular Hgb Conc 33.5 g/dL (32.0-36.0); Mean Corpuscular Volume 96.2 fL (80.0-100.0); Mean Platelet Volume 9.4 fL (9.4-12.4); Monocytes # (auto) 0.73 K/uL (0.11-0.59); Monocytes % (auto) 7.8 %; Neutrophils # (auto) 6.08 K/uL (1.40-6.50); Platelet Count 231 K/uL (130-400); RDW Coefficient of Variation 14.2 % (11.5-14.5); RDW Standard Deviation 49.2 fL (36.4-46.3); Red Blood Count 2.86 M/uL (4.20-5.40); White Blood Count 9.36 K/ul (4.8-10.8)
[2024-06-25 07:55] LABS: Albumin Globulin Ratio 1.5 (0.9-2); Albumin Level 3.1 gm/dl (3.4-5.0); BUN Creatinine Ratio 23.6 (10-20); Bilirubin,Total 0.5 mg/dl (0.2-1.0); Calcium 7.9 mg/dl (8.6-10.3); Creatinine Clr Calc Pharmacy 68.8 ml/min; Globulin 2.1 gm/dl (2.5-4.0); Magnesium 1.4 mg/dl (1.7-2.4); Total Protein 5.2 gm/dl (6.0-8.3)
[2024-06-25 08:01] LABS: Troponin I High Sensitivity 44.7 pg/ml (0-14)
[2024-06-25] MEDS: ACETAMINOPHEN 500 MG TAB PO PRN (09:17)
[2024-06-25] MEDS ORDERED: CEFEPIME 1000MG 1,000 MG/10 ML SYR IV SCH (09:30)
--- NOTE | 2024-06-25 09:44 | XRay Report ---
XR chest 1V portable CLINICAL HISTORY: Fever COMPARISON STUDY: 06/02/2024 FINDINGS: Heart size and pulmonary vasculature are normal. Inspiration is shallow. There is interval stranding opacity at the left base. No pleural effusion or pneumothorax. IMPRESSION: Atelectasis versus early pneumonia left lung base. ACT 112: Negative or not required by law. Electronically signed by: Jax Dean M.D. 06/25/2024 9:42 AM
[2024-06-25] MEDS: SODIUM CHLORIDE 0.9% 1,000 ML IV SCH (09:57)
[2024-06-25] MEDS: MAGNESIUM SULFATE / D5W 1 GM/100 ML BAG IV SCH (09:58)
[2024-06-25] MEDS: CEFEPIME 2000MG 2,000 MG/20 ML SYR IV SCH (10:15)
--- NOTE | 2024-06-25 11:34 | Electrocardiogram Report ---
Test Reason : Blood Pressure : */* mmHG Vent. Rate : 125 BPM Atrial Rate : 125 BPM P-R Int : 134 ms QRS Dur : 88 ms QT Int : 284 ms P-R-T Axes : 65 5 52 degrees QTcB Int : 409 ms Sinus tachycardia Diffuse Minor Nonspecific T wave abnormality Abnormal ECG When compared with ECG of 02-Jun-2024 09:34, HR has increased by 38 bpm Nonspecific T wave abnormality now present Confirmed by Huy Ryan ([id number]) on 06/25/2024 11:34:00 AM Referred By: Ace Owens Confirmed By: uHy Ryan
--- NOTE | 2024-06-25 12:21 | Orthopedic Progress Note ---
Date of Service June 25, 2024 Assessment & Plan (1) Spinal stenosis of lumbar region with radiculopathy: Plan: We will continue physical therapy. We will monitor her AMI output. She is requested home health. This would be reasonable upon discharge. She does not want to go to rehab. She will avoid narcotics. Admission and Anticipated Discharge Date Admission Date: June 23, 2024 Subjective Patient is struggling with nausea. She is not tolerating pain medications. She struggling with back pain. But progressing with therapy. Physical Exam Physical Exam: Patient is in the chair at the bedside. Is constricted testing. Results & Data Vital Signs (Past 12 Hours) Vital Signs Temp Pulse Resp BP BP Pulse Ox O2 Del Method 06/25/24 10:13 37.0 C 06/25/24 08:51 37.7 C H 102/52 L 108/54 L 06/25/24 08:00 Nasal Cannula 06/25/24 07:29 37.8 C H 126 H 20 98/49 L 96 Nasal Cannula 06/25/24 05:42 37.7 C H 122 H 20 112/66 93 Nasal Cannula 06/25/24 05:20 140 H 22 107/64 89 L Room Air O2 Flow Rate 06/25/24 10:13 06/25/24 08:51 06/25/24 08:00 2 06/25/24 07:29 2.0 06/25/24 05:42 2 06/25/24 05:20 Queries Orthopedic Spine Acute Posthemorrhagic Anemia: Yes Obesity: Yes
[2024-06-25 12:57] LABS: Appearance Urine Clear (Clear); Bacteria Urine Automated None Seen (None Seen); Bilirubin Urine Negative (Negative); Blood Urine Negative (Negative); Cast Urine Automated 0-2 /lpf (0-2); Color Urine Yellow; Glucose Urine UA Negative (Negative); Ketones Urine Negative (Negative); Leukocyte Esterase Urine 2+ (Negative); Nitrite Urine Negative (Negative); Protein Urine Negative (Negative); RBC Urine Automated 0-2 /hpf (0-2); Specific Gravity Urine 1.011 (1.000-1.030); Urobilinogen Urine Negative (Negative); WBC Urine Automated 0-5 /hpf (0-5); pH Urine 5.5 (4.5-7.5)
[2024-06-25 13:06] LABS: Adenovirus PCR Not Detected (NotDetected); Bordetella parapertussis PCR Not Detected (NotDetected); Bordetella pertussis PCR Not Detected (NotDetected); Chlamydia pneumoniae PCR Not Detected (NotDetected); Coronavirus 229E PCR Not Detected (NotDetected); Coronavirus CoV-2 (COVID19)PCR Not Detected (NotDetected); Coronavirus HKU1 PCR Not Detected (NotDetected); Coronavirus NL63 PCR Not Detected (NotDetected); Coronavirus OC43PCR Not Detected (NotDetected); Human Metapneumovirus PCR Not Detected (NotDetected); Influenza A PCR Not Detected (NotDetected); Influenza B PCR Not Detected (NotDetected); Mycoplasma pneumoniae PCR Not Detected (NotDetected); Parainfluenza Virus 1 PCR Not Detected (NotDetected); Parainfluenza Virus 2 PCR Not Detected (NotDetected); Parainfluenza Virus 3 PCR Not Detected (NotDetected); Parainfluenza Virus 4 PCR Not Detected (NotDetected); Respiratory Syncytial VirusPCR Not Detected (NotDetected); Rhinovirus/Enterovirus PCR Not Detected (NotDetected)
[2024-06-25] MEDS: traMADol HCL 50 MG TABLET PO PRN (13:43)
--- NOTE | 2024-06-25 15:34 | Hospitalist Progress Note ---
Date of Service June 25, 2024 Assessment & Plan (1) Spinal stenosis of lumbar region with radiculopathy: Plan: Patient is a78 y/o female with seronegative RA, HTN, CKD3, dyslipidemia, asthma, B12 deficiency, and other history as outlined below who underwent L3-L4 decompression and fusion, spinal cord stimulator removal, and L4-L5 hardware removal on 06/23/[address] Owens . Patient has been consulted for comanagement. Spinal stenosis status post L3-L4 decompression and fusion on 06/23/2024 Acute blood loss anemia Hypotension Monitor CBC, currently no indication for blood transfusion IV fluids as needed Activity, DVT prophylaxis, wound care as per primary team Appreciate orthopedics help SIRS Postoperative fever Possible left lung base pneumonia Vs atelectasis --CXR: Atelectasis versus early pneumonia left lung base. --BioFire negative --Blood cultures pending --UA fairly within normal limits --Check procalcitonin Empirically started on IV cefepime Incentive spirometer Mild troponin elevation Likely demand ischemia secondary to tachycardia Troponin trended down Monitor (2) Rheumatoid arthritis: Plan: Chronic, stable Methotrexate held for surgery (3) Asthma: Plan: Chronic, stable. Continue home inhalers (4) Anxiety and depression: Plan: Chronic, stable Continue outpatient meds. (5) Hypertension: Plan: Chronic, stable Resume home lisinopril once BP improves BP better today Plan CODE STATUS Full code DVT Px: As per primary Admission and Anticipated Discharge Date Admission Date: June 23, 2024 Subjective Patient is seen and examined at bedside States having cough with some expectoration Reports back pain is controlled Sitting in chair during my encounter Denies any chest pain, dyspnea, dysuria, hematuria Family at bedside Febrile this morning Review of Systems Review of Systems: All systems reviewed & are unremarkable except as noted in Subjective Physical Exam Physical Exam: Physical Exam: Vitals signs as noted above General Appearance:Moderately built and nourished, no apparent distress Head: normocephalic, Atraumatic Eyes: normal inspection, EOMI Neck: supple, Trachea midline Respiratory/Chest: Decreased breath sounds, basal crackles, No accessory muscle use Cardiovascular: S1, S2, No murmur Abdomen/GI:Soft, Non tender, Bowel sounds present Back: Surgical Site in dressing Extremities/Musculoskeletal:normal inspection, Trace edema Neurologic/Psych:AAOX3, grossly no focal neurological deficits Skin: normal color, warm Results & Data Results & Data Vital Signs (Past 12 Hours) Vital Signs Temp Pulse Resp BP BP Pulse Ox O2 Del Method 06/25/24 14:49 36.3 C L 90 18 121/74 96 Room Air 06/25/24 10:13 37.0 C 06/25/24 08:51 37.7 C H 102/52 L 108/54 L 06/25/24 08:00 Nasal Cannula 06/25/24 07:29 37.8 C H 126 H 20 98/49 L 96 Nasal Cannula 06/25/24 05:42 37.7 C H 122 H 20 112/66 93 Nasal Cannula 06/25/24 05:20 140 H 22 107/64 89 L Room Air O2 Flow Rate 06/25/24 14:49 06/25/24 10:13 06/25/24 08:51 06/25/24 08:00 2 06/25/24 07:29 2.0 06/25/24 05:42 2 06/25/24 05:20 Laboratory Results Short CBC 06/25/24 Range/Units 07:12 WBC 9.36 (4.8-10.8) K/ul Hgb 9.2 L (12.0-16.0) g/dl Hct 27.5 L (37.0-47.0) % Plt Count 231 (130-400) K/uL BMP 06/25/24 07:12 Sodium 136 Potassium 4.0 Chloride 104 Carbon Dioxide 29 BUN 17 Creatinine 0.72 Glucose 104 H Calcium 7.9 L Liver Function 06/25/24 Range/Units 07:12 Total Bilirubin 0.5 (0.2-1.0) mg/dl AST 34 (13-39) U/L ALT 15 (7-52) U/L Alkaline Phosphatase 51 (34-104) U/L Albumin 3.1 L (3.4-5.0) gm/dl Urine 06/25/24 Range/Units 12:37 Urine Color Yellow Urine Appearance Clear (Clear) Urine pH 5.5 (4.5-7.5) Ur Specific [place] 1.011 (1.000-1.030) Urine Protein Negative (Negative) Urine Glucose (UA) Negative (Negative) (2) Rheumatoid arthritis Rheumatoid arthritis location: unspecified site Rheumatoid factor presence: without rheumatoid factor Qualified Code(s): M06.00 - Rheumatoid arthritis with out rheumatoid factor, unspecified site (3) Asthma Asthma severity: unspecified severity Asthma persistence: unspecified Asthma complication type: unspecified Qualified Code(s): J45.909 - Unspecified asthma, uncomplicated (5) Hypertension Hypertension type: unspecified Qualified Code(s): I10 - Essential (primary) hypertension
[2024-06-26 07:59] LABS: Hematocrit (blood only) 25.7 % (37.0-47.0); Hemoglobin 8.5 g/dl (12.0-16.0); Mean Corpuscular Hgb Conc 33.1 g/dL (32.0-36.0); Mean Corpuscular Volume 96.6 fL (80.0-100.0); Mean Platelet Volume 9.4 fL (9.4-12.4); Platelet Count 199 K/uL (130-400); RDW Coefficient of Variation 14.3 % (11.5-14.5); RDW Standard Deviation 50.1 fL (36.4-46.3); Red Blood Count 2.66 M/uL (4.20-5.40); White Blood Count 7.44 K/ul (4.8-10.8)
[2024-06-26 08:27] LABS: BUN Creatinine Ratio 21.9 (10-20); Calcium 8.2 mg/dl (8.6-10.3); Creatinine Clr Calc Pharmacy 77.4 ml/min; Magnesium 1.8 mg/dl (1.7-2.4); Potassium 3.9 mmol/L (3.5-5.1)
--- NOTE | 2024-06-26 10:26 | Orthopedic Progress Note ---
Date of Service June 26, 2024 Assessment & Plan (1) Spinal stenosis of lumbar region with radiculopathy: Plan: This point we will continue physical therapy monitor AMI output anticipate discharge home tomorrow with home health. Admission and Anticipated Discharge Date Admission Date: June 23, 2024 Subjective Patient is markedly improved. She states her leg symptoms are improving. Back pain controlled. Physical Exam Physical Exam: Patient is up in the chair at the bedside. Discussed when to testing. Peers comfortable. Results & Data Vital Signs (Past 12 Hours) Vital Signs Temp Pulse Resp BP Pulse Ox O2 Del Method 06/26/24 06:37 74 111/71 06/26/24 06:30 36.8 C 85 18 91/56 L 93 Room Air Queries Orthopedic Spine Acute Posthemorrhagic Anemia: Yes Obesity: Yes
--- NOTE | 2024-06-26 17:46 | Hospitalist Progress Note ---
Date of Service June 26, 2024 Assessment & Plan (1) Spinal stenosis of lumbar region with radiculopathy: Plan: Patient is a78 y/o female with seronegative RA, HTN, CKD3, dyslipidemia, asthma, B12 deficiency, and other history as outlined below who underwent L3-L4 decompression and fusion, spinal cord stimulator removal, and L4-L5 hardware removal on 06/23/[address] Owens . Patient has been consulted for comanagement. Spinal stenosis status post L3-L4 decompression and fusion on 06/23/2024 Acute blood loss anemia Hypotension Monitor CBC, currently no indication for blood transfusion IV fluids as needed Activity, DVT prophylaxis, wound care as per primary team Appreciate orthopedics help Likely discharge tomorrow as per Ortho SIRS Postoperative fever Possible left lung base pneumonia Vs atelectasis --CXR: Atelectasis versus early pneumonia left lung base. --BioFire negative --Blood cultures negative to date: --UA fairly within normal limits -- Normal procalcitonin Empirically started on IV cefepime Incentive spirometer Likely plan to discharge on oral antibiotics Mild troponin elevation Likely demand ischemia secondary to tachycardia Troponin trended down Monitor (2) Rheumatoid arthritis: Plan: Chronic, stable Methotrexate held for surgery (3) Asthma: Plan: Chronic, stable. Continue home inhalers (4) Anxiety and depression: Plan: Chronic, stable Continue outpatient meds. (5) Hypertension: Plan: Chronic, stable Resume home lisinopril once BP improves BP better today Plan CODE STATUS Full code DVT Px: As per primary Admission and Anticipated Discharge Date Admission Date: June 23, 2024 Subjective Patient is seen and examined at bedside States feeling a lot better today Back pain is controlled Has minimal cough No other complaints today Afebrile today Denies any chest pain, dyspnea, dysuria, hematuria Saturating well on room air Review of Systems Review of Systems: All systems reviewed & are unremarkable except as noted in Subjective Physical Exam Physical Exam: Physical Exam: Vitals signs as noted above General Appearance:Moderately built and nourished, no apparent distress Head: normocephalic, Atraumatic Eyes: normal inspection, EOMI Neck: supple, Trachea midline Respiratory/Chest: Decreased breath sounds, basal crackles, No accessory muscle use Cardiovascular: S1, S2, No murmur Abdomen/GI:Soft, Non tender, Bowel sounds present Back: Surgical Site in dressing Extremities/Musculoskeletal:normal inspection, Trace edema Neurologic/Psych:AAOX3, grossly no focal neurological deficits Skin: normal color, warm Results & Data Results & Data Vital Signs (Past 12 Hours) Vital Signs Temp Pulse Resp BP Pulse Ox O2 Del Method 06/26/24 15:00 36.8 C 87 16 110/72 95 Room Air 06/26/24 06:37 74 111/71 06/26/24 06:30 36.8 C 85 18 91/56 L 93 Room Air Laboratory Results Short CBC 06/26/24 Range/Units 07:22 WBC 7.44 (4.8-10.8) K/ul Hgb 8.5 L (12.0-16.0) g/dl Hct 25.7 L (37.0-47.0) % Plt Count 199 (130-400) K/uL BMP 06/26/24 07:22 Sodium 138 Potassium 3.9 Chloride 106 Carbon Dioxide 29 BUN 14 Creatinine 0.64 Glucose 98 Calcium 8.2 L (2) Rheumatoid arthritis Rheumatoid arthritis location: unspecified site Rheumatoid factor presence: without rheumatoid factor Qualified Code(s): M06.00 - Rheumatoid arthritis without rheumatoid factor, unspecified site (3) Asthma Asthma severity: unspecified severity Asthma persistence: unspecified Asthma complication type: unspecified Qualified Code(s): J45.909 - Unspecified asthma, uncomplicated (5) Hypertension Hypertension type: unspecified Qualified Code(s): I10 - Essential (primary) hypertension
[2024-06-27 07:27] VITALS: BP 132/79; PULSE 79; RESP 16; TEMP 97.7; O2SAT 95
[2024-06-27 08:43] LABS: Hematocrit (blood only) 28.8 % (37.0-47.0); Hemoglobin 9.6 g/dl (12.0-16.0); Mean Corpuscular Hemoglobin 31.6 pg (25.0-34.0); Mean Corpuscular Hgb Conc 33.3 g/dL (32.0-36.0); Mean Corpuscular Volume 94.7 fL (80.0-100.0); Mean Platelet Volume 9.6 fL (9.4-12.4); Nucleated RBC # (auto) 0.02 K/uL (0.00-0.12); Nucleated RBC % (auto) 0.3 %; Platelet Count 237 K/uL (130-400); RDW Standard Deviation 47.9 fL (36.4-46.3); Red Blood Count 3.04 M/uL (4.20-5.40); White Blood Count 6.87 K/ul (4.8-10.8)
[2024-06-27 09:18] LABS: BUN Creatinine Ratio 21.6 (10-20); Calcium 9.1 mg/dl (8.6-10.3); Creatinine Clr Calc Pharmacy 66.9 ml/min; Magnesium 1.8 mg/dl (1.7-2.4); Potassium 4.1 mmol/L (3.5-5.1)
--- NOTE | 2024-06-27 10:32 | Hospitalist Progress Note ---
Date of Service June 27, 2024 Assessment & Plan (1) Spinal stenosis of lumbar region with radiculopathy: Plan: Patient is a78 y/o female with seronegative RA, HTN, CKD3, dyslipidemia, asthma, B12 deficiency, and other history as outlined below who underwent L3-L4 decompression and fusion, spinal cord stimulator removal, and L4-L5 hardware removal on 06/23/[address] Owens . Patient has been consulted for comanagement. Spinal stenosis status post L3-L4 decompression and fusion on 06/23/2024 Acute blood loss anemia Hypotension Monitor CBC, currently no indication for blood transfusion IV fluids as needed Activity, DVT prophylaxis, wound care as per primary team Appreciate orthopedics help Disposition as per primary team Advised to follow-up with PCP in 1 week on discharge SIRS Postoperative fever Possible left lung base pneumonia Vs atelectasis --CXR: Atelectasis versus early pneumonia left lung base. --BioFire negative --Blood cultures negative to date: --UA fairly within normal limits -- Normal procalcitonin Empirically started on IV cefepime Incentive spirometer Will transition IV cefepime to oral antibiotics on discharge to complete course Mild troponin elevation Likely demand ischemia secondary to tachycardia Troponin trended down Monitor (2) Rheumatoid arthritis: Plan: Chronic, stable Methotrexate held for surgery (3) Asthma: Plan: Chronic, stable. Continue home inhalers (4) Anxiety and depression: Plan: Chronic, stable Continue outpatient meds. (5) Hypertension: Plan: Chronic, stable Resume home lisinopril once BP improves BP better today Plan CODE STATUS Full code DVT Px: As per primary Admission and Anticipated Discharge Date Admission Date: June 23, 2024 Subjective Patient is seen and examined at bedside Cough much improved No new complaint Discussed with patient's family at bedside Denies any chest pain, dyspnea, dysuria, hematuria, abdominal pain Saturating well on room air Plan to be discharged home today Review of Systems Review of Systems: All systems reviewed & are unremarkable except as noted in Subjective Physical Exam Physical Exam: Physical Exam: Vitals signs as noted above General Appearance:Moderately built and nourished, no apparent distress Head: normocephalic, Atraumatic Eyes: normal inspection, EOMI Neck: supple, Trachea midline Respiratory/Chest: Decreased breath sounds, basal crackles, No accessory muscle use Cardiovascular: S1, S2, No murmur Abdomen/GI:Soft, Non tender, Bowel sounds present Back: Surgical Site in dressing Extremities/Musculoskeletal:normal inspection, Trace edema Neurologic/Psych:AAOX3, grossly no focal neurological deficits Skin: normal color, warm Results & Data Results & Data Vital Signs (Past 12 Hours) Vital Signs Temp Pulse Resp BP Pulse Ox O2 Del Method 06/27/24 07:25 36.5 C 79 16 132/79 95 Room Air Laboratory Results Short CBC 06/27/24 Range/Units 07:51 WBC 6.87 (4.8-10.8) K/ul Hgb 9.6 L (12.0-16.0) g/dl Hct 28.8 L (37.0-47.0) % Plt Count 237 (130-400) K/uL BMP 06/27/24 07:51 Sodium 141 Potassium 4.1 Chloride 103 Carbon Dioxide 30 BUN 16 Creatinine 0.74 Glucose 94 Calcium 9.1 (2) Rheumatoid arthritis Rheumatoid arthritis location: unspecified site Rheumatoid factor presence: without rheumatoid factor Qualified Code(s): M06.00 - Rheumatoid arthritis without rheumatoid factor, unspecified site (3) Asthma Asthma complication type: unspecified Asthma persistence: unspecified Asthma severity: unspecified severity Qualified Code(s): J45.909 - Unspecified asthma, uncomplicated (5) Hypertension Hypertension type: unspecified Qualified Code(s): I10 - Essential (primary) hypertension
--- NOTE | 2024-06-27 11:38 | Discharge Summary ---
Date of Service June 27, 2024 Admission HPI Per Admitting Provider This is a 70-year-old female who presents with back and pelvic pain and failing course of nonoperative care she is here for surgical invention. Principal Diagnosis Lumbar spondylosis with radiculopathy Discharge Data Allergies Allergy/AdvReac Type Severity Reaction Status Date / Time erythromycin base Allergy Mild Rash Verified 06/23/24 06:55 latex Allergy Mild Rash Verified 06/23/24 06:55 Penicillins Allergy Mild Rash Verified 06/23/24 06:55 tetracycline Allergy Mild Rash Verified 06/23/24 06:55 codeine AdvReac Mild "makes me Verified 06/23/24 06:55 hyper" Consultations 06/23/24 13:03 Consult Hospitalist Routine Procedures Performed Operation Date: 06/23/24 07:45 Actual Procedures p L3-L4 Decompression and Fusion, Spinal Cord Stimulator Removal, Spinal Cord Monitoring(Not Applicable) - Ace Owens DO s L4-L5 Hardware Removal,(Not Applicable) - Ace Owens DO Ordered Studies 06/23/24 [place] lumbar spine 2-3V Routine Hospital Course (1) Spinal stenosis of lumbar region with radiculopathy: Patient went multilevel lumbar decompression fusion trial as well as taken orthopedic for postoperative. Postop she progressed appropriately. AMI and decreasing. Excellent strength testing. Pain control. Subsidy discharged home. Discharge orders instructions from the chart for further view. Total Time Total Time Spent Total Time Spent (In Minutes): 20 minutes Discharge Plan Discharge Items Patient Disposition: Home - Self-Care Reason For Visit: Lumbar Spinal Stenosis with Neurogenic Claudicatio Discharge Diagnosis: Lumbar spondylosis with radiculopathy Activity: As commented below Non-emergency contact: Primary Care Provider Call non-emergency contact if: you have any medication questions Follow-up/Referrals: Archie Michaels DO [Primary Care Provider] - (Please call your primary care physician and schedule a follow up appointment.) Diet: Regular Ambulatory Orders: XR cervical [id number] routine (Routine) Timeframe: 1 Day Location: Determined by Patient Ordered By: Ashly Encinas Attending Provider Instructions: ACTIVITY RECOMMENDATIONS: SELF CARE INSTRUCTIONS AFTER THORACIC/LUMBAR FUSIONS 1. You may walk to your tolerance. It is good exercise for your legs and back. Expect some back and intermittent leg aches and pains. 2. You may perform "counter-top" level activities (make a sandwich, karen with a project, etc.). 3. No bending or lifting of more than 10 pounds or back twisting of any nature (roll like a log when turning in bed). 4. You may ride in a car for 20-30 minutes at a time. No driving until after your first visit with your doctor. 5. Frequent changes of position and restricting sitting to 30 minutes at a time will help limit the amount of back spasms and stiffness you may experience. 6. You may discontinue the use of ambulatory aids (cane, crutches, etc.) once your strength and confidence allow. 7. You may didactic program in dietetics director the shower and let water strike your incision when you arrive home at least once daily. Do not take a tub bath, sit in a hot tub or go into a swimming pool until after your first recheck in the office. 8. You may resume previous diet. SPECIAL CARE INSTRUCTIONS: VERY IMPORTANT TO READ AND REVIEW A. Your surgical incision has been closed with a cosmetic suture under the skin that will dissolve in about 6 weeks. In 14 days, you can use a pair of clean scissors and cut the suture that is left outside of the skin at the ends of your incision. 1. The small skin tapes can be removed 7 days after surgery if they have not fallen off by that point. 2. You may keep the wound open to air as much as possible to promote healing after post-op day number 5 unless told otherwise by your doctor. 3. If you think the wound looks like it is becoming infected (redness or worsening drainage) and/or you are experiencing fever, chill or worsening back pain and muscle spasms, contact the office so that we may evaluate you as soon as possible. B. Complications are uncommon, but please contact us if you have any signs or symptoms of: 1. wound infection (fever higher than 102.5 degrees F, redness, separation of wound, drainage, or increasing pain from the incision) 2. blood clots in legs (pain, swelling, redness and warmth in legs) 3. urinary tract infection (fever higher than 102.5 degrees F, burning upon urination or increased frequency of urination) 4. nerve problems (inability to walk on your toes or heels, numbness, loss of bowel or bladder control) 5. any other symptoms that concern you C. Please call the office at if you have any concerns or questions about your operation or recovery. D. No smoking! Smoking drastically decreases the chance of a solid fusion. E. Do not take any anti-inflammatory medications (Indocin, Advil, Motrin, Aspirin, Naprosyn, etc.) as these may inhibit the chance of a solid fusion. Tylenol is okay to take for pain. MANAGING PAIN AFTER SPINAL SURGERY 1. Narcotic medication is intended for short-term use and will be provided for surgical pain. Surgical pain usually lasts for a period of 4-6 weeks. Narcotic medication includes Percocet, Vicodin, Darvocet, Tylenol #3 or Lortab. 2. Longer-term pain is more appropriately treated with non-narcotic medication such as Tylenol ES. 3. Muscle spasm is not appropriately treated with narcotics. Muscle relaxers such as Soma, Flexeril or Skelaxin can be used along with Tylenol ES. 4. Remember that we all live with some "aches and pains". This is not unusual or uncommon after an injury or as we get older. a. Back pain is expected and may include muscle spasms for 4 to 6 weeks after surgery. The pain should gradually improve. If the pain worsens for no apparent reason, please contact the office. b. Intermittent leg pain may also be experienced and should not be concerned about unless it worsens for no apparent reason. If so, please contact the office. 5. We will provide appropriate medication within the normal guidelines of their prescribed use. We will also be very cautious and aware of potential abuse and extended duration of patients' medication needs. a. Pain medications are for your comfort and to assist with sleep and rest so that the tissue can heal. They are not provided in order to return to normal activity and should not be used through the day. To do so or worsening pain at night can result from ongoing tissue damage and development of tolerance to the prescribed medicine. 6. Please allow 2-3 days to process refills. Prescriptions will not be mailed but must be picked up at the office. FOLLOW UP VISIT: Keep your scheduled follow-up appointment. Any questions, please call the office at . Pending Studies at Discharge: No Stand-Alone Forms: My [facility], Smoking Cessation Medications and DC Order Prescriptions: New tramadol 50 mg tablet 50 mg PO Q6H PRN (Reason: pain, moderate) Qty: 30 0RF oxycodone 5 mg tablet 5 mg PO Q6H PRN (Reason: pain) Qty: 30 0RF levofloxacin 500 mg tablet 500 mg PO DAILY 5 Days Qty: 5 0RF Continued lisinopril 20 mg Tablet 20 mg PO QAM baclofen 10 mg Tablet 10 mg PO TID PRN (Reason: Pain) ferrous sulfate 325 mg (65 mg iron) Tablet 325 mg PO QAM folic acid 1 mg Tablet 1 mg PO QAM gabapentin 100 mg Capsule 200 mg PO BID Patient Comments: morning and afternoon ergocalciferol (vitamin D2) [Vitamin D2] 1,250 mcg (50,000 unit) Capsule 1,250 mcg PO WK Patient Comments: mondays duloxetine [Cymbalta] 60 mg Capsule,Delayed Release(Dr/Ec) 120 mg PO QAM albuterol sulfate 90 mcg/actuation Hfa Aerosol Inhaler 1 inh INHALATION QID PRN (Reason: sob) gabapentin 300 mg capsule 900 mg PO HS Discontinued methotrexate sodium 2.5 mg Tablet 2.5 mg PO UD Patient Comments: takes 6 tablets every sunday Discharge Orders: Discharge Order (Routine); Ordered 06/27/24 Ordered By: Ace Owens Admission Data Admit Date/Time: 06/23/24 11:54 Attending Provider: Ace Owens Admit Provider: Ace Owens Primary Care Provider: Archie Michaels Other Providers: Mk Steven
== END 2024-06-27 12:25 | disposition home health service (06) | DRG 427 ==
LOC: ASU 05:49 → PACUINP 11:54 → 3N 14:10